=== PATIENT | male | born 1955 | race Caucasian/White ===

== ENCOUNTER → 2018-02-16 | Outpatient (CLI) | payer BC ==
--- NOTE | 2018-02-16 11:18 | US ---
EXAM DESCRIPTION: Venous,Lower Extremity LT CLINICAL HISTORY: LOCALIZED EDEMA COMPARISON: None Available. TECHNIQUE: Left lower extremity venous duplex FINDINGS: Doppler evaluation of the left lower extremity deep veins was performed. Normal color flow is seen in the common femoral, superficial femoral, profunda femoral and greater saphenous veins. Normal flow is seen in the popliteal vein and veins below the knee in the calf. Normal venous compressibility and flow augmentation. Complex fluid collection in the medial left calf and the left popliteal region are noted most consistent with dissecting Mehta's cyst. The popliteal region fluid collection measures 5. 2 x 2 by 2.4 cm. In the medial proximal left calf and another collection is seen which could be due to dissection of the Mehta's cyst. An unrelated fluid collection such as hematoma or abscess certainly cannot be excluded. This measures 6.9 x 3.4 x 2.2 cm. Clinical correlation recommended. IMPRESSION: Negative for evidence of deep venous thrombosis on left lower extremity venous Doppler sonogram. 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 Complex fluid collection 6.9 cm in the proximal medial left calf. See above. Electronically signed by: Placido Louie MD 02/16/2018 11:17 AM CDT
== END ==
LOC: US 07:57
PROVIDERS: ATTEND Nurse Practitioner Family
DX: R60.0 Localized edema (principal); M71.22 Synovial cyst of popliteal space [Baker], left knee